=== PATIENT | female | born 1945 | race Caucasian/White ===

== ENCOUNTER 2016-10-10 11:15 | Outpatient (CLI) | payer MEDICARE ==
[~2016-10-10] VITALS: Ht 154.9 cm; Wt 99.1 kg
--- NOTE | ~2016-10-10 | HEMODYNAMI ---
PATIENT:JAMES GOETZ MEDICAL RECORD: [id number] : 43 LOCATION:D.CAT ADMISSION DATE: 10/10/16 Generatedon:10/10/201613:44 Patient name: JAMES GOETZ Patient #: [id number] SSN: : 1945 Date of study: 10/10/2016 Page: Of Hemodynamic Procedure Report Patient Data Patient Demographics Procedure consent was obtained First Name: JAMES Gender: Female Last Name: BISHNU : 1945 Middle Initial: ROSENDO Age: 71 year(s) Patient #: [id number] Race: Unknown Additional ID: [id number] Contact details [address]: [address] [place] [address] State: [place] City: [place] Zip code: [address] Past Medical History Allergies Allergen Reaction Date Comments Reported Other allergy 10/10/2016 PCN, Metoporol. Admission Admission Data Admission Date: 10/10/2016 Admission Time: 11:15 Admit Source: Other Procedure Procedure Types Cath Procedure Diagnostic Procedure Cardioversion Procedure Description Procedure Date Procedure Date: 10/10/2016 Procedure Start Time: 13:38 Procedure End Time: 13:44 Procedure Staff Name Function Casa Emery MD Performing Physician Carlton Ritchie RT Monitor Pawan Alcazar RN Nurse Amalia Reynaga RT Geological Engineering Teacher Procedure Data Procedure Complications No complications Procedure Medications Medication Administration Route Dosage Oxygen NC 6 l/min Refer to Anesthesia Notes for Sedation Medications Hemodynamics Rest Pre Cath Intra NCS Post Cath Vital Signs Time Heart Resp SPO2 NIBP (mmHg) Rhythm Pain Sedation Rate (ipm) (%) Status Level (bpm) 13:22:52 73 20 96 150/97(137) NSR 0 (11) 10(A) , No pain 13:27:36 75 16 96 151/81(129) NSR 0 (11) 10(A) , No pain 13:32:17 73 12 96 167/87(131) NSR 0 (11) 10(A) , No pain 13:37:00 76 18 93 137/73(111) NSR 0 (11) 10(A) , No pain 13:41:59 61 16 99 Measuring NSR 0 (11) 10(A) , No pain 13:42:31 51 14 99 120/65(96) NSR 0 (11) 10(A) , No pain Medications Time Medication Route Dose Verified Delivered Reason Notes Effectiven ess by by 13:37:32 Oxygen NC 6 Pawan Villalta Per l/min Ottoniel Alcazar RN physician RN 13:37:40 Refer to Pawan Villalta Anesthesia Ottoniel Alcazar RN Notes for RN Sedation Medications Procedure Log Time Note 12:43:36 Informed consent obtained and on chart 12:44:11 Admit Source: Other 12:45:05 Time tracking: Regular hours 12:45:08 Plan of Care:Hemodynamics will remain stable., Cardiac rhythm will remain stable., Comfort level will be maintained., Respiratory function will remain adequate., Patient/ family verbilizes understanding of procedure., Procedure tolerated without complication., Recovers from procedure without complications.. 12:45:21 H&P Date Dictated: 09/13/2016 Within 30 days and on chart., H&P Addendum completed by physician on day of procedure. (MUST COMPLETE FOR ALL OUTPATIENTS). 13:02:56 Carlton Ritchie RT(R) sent for patient. Start room use. 13:16:56 Patient received from Pre/Post Procedure Room to CCL 3 Alert and oriented. Tansferred to table in Supine position. 13:16:57 Warm blankets applied, and susan hugger turned on for patient comfort. 13:16:58 Correct patient and procedure confirmed by team. 13:16:58 ECG and BP/O2 sat monitors applied to patient. 13:17:01 Full Disclosure recording started 13:18:39 Pre-procedure instructions explained to patient. 13:18:39 Pre-op teaching completed and patient verbalized understanding. 13:18:41 Family in waiting room. 13:18:43 Patient NPO since Midnight. 13:19:12 Patient allergic to Other allergyPCN, Metoporol. 13:19:17 Is the patient allergic to Iodine/contrast media? No. 13:21:16 Vital chart was started 13:21:54 Rhythm: atrial fibrillation 13:22:03 Is patient on blood thinner?Yes 13:22:08 ACC The patient was administered the following blood thiners within the last 24 hours: Eliquis 13:22:16 ----Pre-sedation anethsthesia assessment.---- 13:22:35 Refer to anesthesia notes for assessment 13:22:48 Patient pain scale 0/10 ?. 13:22:57 IV patent on arrival in left forearm with 0.9% NaCl at O. 13:23:04 Lab results completed and on chart. 13:23:08 Alarms reviewed by RMartha Bergman 13:23:48 Dr. Aranda present and monitoring patient for TIVA. 13:23:52 Quick combo pads placed on patients chest and back. 13:33:46 Final Timeout: patient, procedure, and site verified with staff and physician. All members of the team are in agreement. 13:33:51 Physical assessment completed. ASA score P 2 - A patient with mild systemic disease as per Casa Emery MD. 13:33:54 Sedation plan: IV Moderate Sedation Versed, Fentanyl 13:37:26 Procedure started. 13:37:32 Oxygen 6 l/min NC was administered by Pawan Alcazar RN; Per physician; 13:37:40 Refer to Anesthesia Notes for Sedation Medications was administered by Pawan Alcazar RN; ; 13:38:28 Defibrillator synced and charged to 300 Joules. 13:38:32 Shock delivered. 13:39:01 Procedure ended.(Physican Out) 13:40:44 Post procedure rhythm: sinus bradycardia 13:40:47 Post procedure instruction explained to patient.Patient verbalizes understanding. 13:40:48 Patient needs reinforcement of post procedure teaching. 13:40:58 Procedure Complication : No complications 13:41:05 Quick Combo opened to sterile field. 13:41:18 Procedure and supply charges have been captured, reviewed, submitted and are correct. 13:41:20 See physician's report for complete and final results. 13:42:53 See physician's report for complete and final results. 13:44:13 Vital chart was stopped 13:44:16 Report given to Pre/Post Procedure Room. 13:44:19 Patient transfered to Pre/Post Procedure Room with Stretcher. 13:44:21 Procedure ended. 13:44:21 Full Disclosure recording stopped 13:44:28 End room use (Document Last) Device Usage Item Manufacture Quantity Catalog Hospital Part Current Minimal Lot# / Name Number Charge Number Carrie penny# Code [facility] 1 [id number] Combo Signature Audit [place] Stage Time Signature Unsigned Intra-Procedure 10/10/2016 Amalia 1:44:42 PM Counts RT(R) Signatures Monitor : Carlton Ritchie RT Signature : Date : Time : [address] [address]
[~2016-10-10 11:15] MED LIST: BETAPACE 80 MG80 MG PO; CATAPRES0.1 MG PO; CO Q-10100 MG PO; HYDROXYZINE HCL10 MG PO; TOPROL XL50 MG PO; UNIVASC7.5 MG PO; XARELTO20 MG PO
[2016-10-10] MEDS ORDERED: MOEXIPRIL HCL15 M1 PO (11:43)
[2016-10-10] MEDS ORDERED: ELIQUIS5 MG PO (11:44)
[2016-10-10] MEDS ORDERED: LIPITOR10 MG PO (11:44)
[2016-10-10] MEDS ORDERED: NORVASC5 MG PO (11:45)
[2016-10-10] MEDS ORDERED: LINZESS145 MCG PO (11:47)
[2016-10-10] MEDS ORDERED: ARMOUR THYROID30 MG PO (11:48)
[2016-10-10 12:20] VITALS: BP 133/74; Ht 154.9 cm; Wt 99.1 kg
[2016-10-10 12:21] LABS: BASOPHILS 0.5 % (0-2); EOSINOPHILS 1.8 % (0-7); HEMOGLOBIN 15.7 g/dL (12-16); IMMATURE GRANULOCYTES 0.1 % (0-5); LYMPHOCYTES 28.2 % (15-50); MCH 31.2 pg (26.0-34.0); MCHC 33.4 g/dL (31.0-37.0); MCV 93.4 fL (80.0-100.0); MEAN PLATELET VOLUME 11.1 fL (7.4-10.4); MONOCYTES 10.5 % (2-11); NEUTROPHILS 58.9 % (40-80); PLATELET COUNT 169 10x3/uL (130-400); RBC 5.03 10x6/uL (4.00-5.40); RDW 13.5 % (11.5-14.5); WBC 7.9 10x3/uL (4.8-10.8)
[2016-10-10 12:34] LABS: INR 1.33 (0.85-1.17); PROTIME 16.4 SECONDS (11.6-15.0)
[2016-10-10 12:41] LABS: CALCIUM 9.1 mg/dL (8.5-10.1); CARBON DIOXIDE 25.9 mmol/L (21.0-32.0); POTASSIUM - SERUM 3.9 mmol/L (3.5-5.1)
--- NOTE | 2016-10-10 14:00 | NUR ---
SITTING UP IN BED EATING SANDWICH, NO C/O VOICED
--- NOTE | 2016-10-10 14:30 | NUR ---
NO C/O VOICED. NSR ON MONITOR
--- NOTE | 2016-10-11 12:52 | OP ---
PATIENT NAME: JAMES GOETZ MEDICAL RECORD: [id number] :43 LOCATION:D.CAT ADMISSION DATE: SURGEON: RICHIE GARCIA MD DATE OF OPERATION: 10/10/2016 Cardioversion Note PROCEDURE IN DETAIL: After general sedation via TIVA anesthesia, a single synchronized shock was successful in restoring atrial fibrillation to normal sinus rhythm. IMPRESSION: Successful cardioversion on James Goetz. COMPLICATIONS: None. DISPOSITION: To the recovery room, stable. TRANSINT:[id number] Voice Confirmation ID: [id number] DOCUMENT ID: [id number] RICHIE GARCIA MD at 1252 CC: [id number] DICTATION DATE: 10/10/16 1341 [employer] PROFESSOR: 10/11/16 0029 [facility] CLI 10/10/16 [facility] [address] [place] [address]
== END 2016-10-10 15:00 | disposition home or self-care (01) ==
LOC: D.CATH 11:15
PROVIDERS: Internal Medicine Cardiovascular Disease
DX: I48.91 Unspecified atrial fibrillation (principal)